=== PATIENT | male | born 1950 | race Caucasian/White ===

== ENCOUNTER 2019-08-14 10:19 | Outpatient (CLI) | payer MEDICARE ==
[~2019-08-14] VITALS: Ht 188 cm; Wt 95.3 kg
[2019-08-14] MEDS ORDERED: albuterol 2.5 MG/3 ML nebule NEB ONE (11:00)
== END 2019-08-14 23:59 | disposition home or self-care (01) ==
LOC: RT 10:19
PROVIDERS: ATTEND Internal Medicine Pulmonary Disease
DX: J98.8 Other specified respiratory disorders (principal); J45.998 Other asthma
CPT/HCPCS: 94060; 94727; 94729; 94760